=== PATIENT | female | born 1985 | race Caucasian/White ===

== ENCOUNTER 2018-02-07 12:58 | Emergency (ER) | payer MEDICAID, OTHER ==
[~2018-02-07] VITALS: Ht 170.2 cm; Wt 101.6 kg
[2018-02-07 13:17] VITALS: BP 145/94
[2018-02-07] MEDS ORDERED: KETOROLAC TROMETH 60MG/2ML VIAL IM ONE (13:30)
== END 2018-02-07 14:22 | disposition home or self-care (01) ==
LOC: ER 12:58
DX: M43.6 Torticollis (principal); Z90.49 Acquired absence of other specified parts of digestive tract
CPT/HCPCS: 96372; 99283; J1885

== ENCOUNTER → 2020-07-20 | Outpatient (CLI) | payer OTHER ==
[2020-07-21 06:06] LABS: RPR Non Reactive (Non Reactive)
== END | disposition home or self-care (01) ==
LOC: LAB 08:43
PROVIDERS: ATTEND Obstetrics & Gynecology
DX: Z72.51 High risk heterosexual behavior (principal)
CPT/HCPCS: 36415; 86592; 86703; 87340